=== PATIENT | female | born 1940 | race Caucasian/White ===

== ENCOUNTER 2016-10-31 02:35 | Inpatient (IN) | payer MEDICARE, MEDICAID ==
[~2016-10-31 02:35] MED LIST: ACETAMINOPHEN325 M1 PO; ADVIL200 MG; ARICEPT10 M2 PO; AUGMENTIN500 MG PO; BACLOFEN10 M1 PO; BISCOLAX10 MG PR; BP MED; BROVANA15 MCG/22 INH; COLACE100 M1 PO; COMPAZINE5 M2 PO; COREG6.25 M1 PO; COUMADIN5 M2 PO; COUMADIN5 MG PO; COUMADIN7.5 MG PO; DARVOCET; DARVOCET-N 1001 EA PO; DARVOCET-N 1001 TAB; DUONEB INH; EFFEXOR XR75 M1 PO; EFFEXOR75 MG PO; FEROSUL325 M1 PO; FLEXERIL10 MG PO; GUAIFENESIN DM PO; HYZAAR 50-12.51 TA1 PO; HYZAAR 50-12.51 TAB; LASIX20 M1 PO; LOVENOX40 MG/0.1 SC; MICRO-K10 MEQ PO; MILK OF MAGNESIA PO; MIRALAX17 G2 PO; MIRALAX17 GM PO; MUCINEX600 M1 PO; NAPROSYN500 MG PO; NEURONTIN100 M1 PO; NORCO 7.5/325 T1 TAB PO; NUVIGIL50 MG PO; OMEPRAZOLE20 M3 PO; OXYCODONE HCL5 M1 PO; PERIDEX480 ML MM; POTASSIUM CHLO20 ME3 PO; PRILOSEC20 MG PO; PROCHLORPERAZINE5 M1 PO; PULMICORT0.5 MG/22 INH; ROXICODONE5 M2 PO; SIMETHICONE80 M3 PO; TESSALON100 MG/CAP PO; TYLENOL ARTHRI650 M1 PO; VIGAMOX3 M1 OP; VITAMIN D31000 UNI3 PO; VITAMIN D32000 UNIT PO; WELLBUTRIN SR200 M2 PO; ZANTAC150 MG PO; ZESTORETIC 20-1 EAC4 PO; ZESTORETIC 20/21 TAB; ZESTORETIC 20/21 TAB PO
[2016-10-31 03:39] LABS: BASO % 0.1 % (0-2); EOS % 0.8 % (0-7); EOSINOPHIL ABSOLUTE COUNT 0.1 tho/cmm (0.0-0.7); HCT-HEMATOCRIT 41.7 % (34.0-49.0); HGB-HEMOGLOBIN 13.7 gm/dl (12.0-15.5); LYMPH % 18.1 % (20-45); LYMPH ABSOLUTE COUNT 1.3 tho/cmm (0.8-4.5); MCH (MEAN CORPUSCULAR HGB) 30.3 pg (28.0-32.0); MCHC MEAN CORPUSCULAR HGB CONC 32.9 % (32.0-36.0); MCV (MEAN CELL VOLUME) 92.3 fl (82.0-96.0); MEAN PLATELET VOLUME 10.1 cmc (9.4-12.4); MONO % 7.4 % (0-12); MONOCYTE ABSOLUTE COUNT 0.5 tho/cmm (0.0-1.2); NEUTROPHIL ABSOLUTE COUNT 5.3 tho/cmm (1.6-8.0); NEUTROPHIL-AUTOMATED 5.3 tho/cmm (1.6-8.0); NEUTROPHILS % 73.6 % (40-80); PLATELET COUNT 137 tho/cmm (150-450); RED BLOOD COUNT 4.52 mil/cmm (4.00-5.20); RED CELL DISTRIBUTION WIDTH 14.2 % (12.4-16.4); WHITE BLOOD COUNT 7.2 tho/cmm (4.0-10.0)
[2016-10-31 03:45] LABS: ABG CO2 ARTERIAL 26 mmol/L (21-27); ARTERIAL BLD GAS O2 SATURATION 92 % (95-98); ARTERIAL BLOOD GAS PCO2 43 mmHg (32-45); ARTERIAL PO2 65 mmHg (70-100); BICARBONATE 25 mmol/L (21-28); BLOOD GAS BASE EXCESS 0 mM/L (-/+3); PH 7.38 Units (7.35-7.45)
[2016-10-31 03:46] LABS: INR 1.8 INR (0.9-1.1)
[2016-10-31 03:58] LABS: ALB/GLOB RATIO 0.8 (0.8-2.0); ALBUMIN 3.3 g/dl (3.5-5.0); ALKALINE PHOSPHATASE 87 U/L (33-138); ALT/SGPT 20 U/L (12-78); ANION GAP 11 mmol/L (0-20); AST/SGOT 13 U/L (10-40); BILIRUBIN,TOTAL 0.7 mg/dl (0-1.5); BLOOD UREA NITROGEN 16 mg/dl (6-24); CALCIUM 8.4 mg/dl (8.5-10.5); CARBON DIOXIDE-VENOUS 28 mmol/L (22-32); CHLORIDE 105 mmol/l (96-110); CREATININE 0.97 mg/dl (0.50-1.10); GLUCOSE 143 mg/dL (70-110); POTASSIUM 3.7 mmol/L (3.7-5.1); SODIUM 140 mmol/L (135-145); eGFR VALUE FOR BLACK 65 mL/Min
[2016-10-31 04:12] LABS: PROCALCITONIN <0.05 ng/ml (0.05-0.09)
[2016-10-31 04:28] LABS: URINE BILIRUBIN NEGATIVE (NEG); URINE BLOOD NEGATIVE (NEG); URINE GLUCOSE (UA) NEGATIVE (NEG); URINE KETONE NEGATIVE (NEG); URINE LEUKOCYTE ESTERASE NEGATIVE (NEG); URINE NITRITE NEGATIVE (NEG); URINE PROTEIN MODERATE (NEG); URINE SPECIFIC GRAVITY 1.025 (1.003-1.030)
[2016-10-31 04:29] LABS: URINE APPEARANCE CLEAR; URINE COLOR YELLOW
[2016-10-31 04:33] LABS: URINE AMORPHOUS 3+; URINE BACTERIA 1+; URINE EPITHELIAL CELLS RARE /[HPF] (0-10); URINE RBC 0 /[HPF] (0-5); URINE WBC RARE /[HPF] (0-5)
[2016-10-31 08:03] LABS: ARTERIAL BLD GAS O2 SATURATION 97 % (95-98); ARTERIAL BLOOD GAS PCO2 42 mmHg (32-45); BICARBONATE 24 mmol/L (21-28); BLOOD GAS BASE EXCESS -1 mM/L (-/+3); PH 7.38 Units (7.35-7.45)
[2016-10-31 08:04] LABS: ABG CO2 ARTERIAL 21 mmol/L (21-27); ARTERIAL PO2 97 mmHg (70-100)
--- NOTE | 2016-10-31 13:48 | NUR ---
0900 MEDS GIVEN LATE DUE TO PATIENT BEING LETHARGIC AND NOT AWAKE ENOUGH TO DO A SWALLOW STUDY
[2016-11-01 05:27] LABS: INR 2.5 INR (0.9-1.1)
[2016-11-01 05:29] LABS: HCT-HEMATOCRIT 38.2 % (34.0-49.0); HGB-HEMOGLOBIN 12.4 gm/dl (12.0-15.5); IMMATURE GRANULOCYTES ABSOLUTE 0.02 tho/cmm (0-0.03); IMMATURE GRANULOCYTES PERCENT 0.3 % (0-0.3); LYMPH % 11.6 % (20-45); LYMPH ABSOLUTE COUNT 0.9 tho/cmm (0.8-4.5); MCHC MEAN CORPUSCULAR HGB CONC 32.5 % (32.0-36.0); MCV (MEAN CELL VOLUME) 92.3 fl (82.0-96.0); MEAN PLATELET VOLUME 10.9 cmc (9.4-12.4); MONO % 8.4 % (0-12); MONOCYTE ABSOLUTE COUNT 0.6 tho/cmm (0.0-1.2); NEUTROPHILS % 79.7 % (40-80); PLATELET COUNT 136 tho/cmm (150-450); RED BLOOD COUNT 4.14 mil/cmm (4.00-5.20); RED CELL DISTRIBUTION WIDTH 14.2 % (12.4-16.4); WHITE BLOOD COUNT 7.6 tho/cmm (4.0-10.0)
[2016-11-01 05:35] LABS: ANION GAP 11 mmol/L (0-20); BLOOD UREA NITROGEN 22 mg/dl (6-24); CALCIUM 8.7 mg/dl (8.5-10.5); CARBON DIOXIDE-VENOUS 28 mmol/L (22-32); CHLORIDE 106 mmol/l (96-110); CREATININE 0.84 mg/dl (0.50-1.10); GLUCOSE 130 mg/dL (70-110); SODIUM 141 mmol/L (135-145); eGFR VALUE FOR BLACK 77 mL/Min
[2016-11-01 05:38] LABS: PROTHROMBIN TIME 30.4 SECONDS (9.0-13.6)
[2016-11-02 06:07] LABS: PLATELET COUNT 152 tho/cmm (150-450)
[2016-11-02 06:28] LABS: BLOOD UREA NITROGEN 29 mg/dl (6-24); CALCIUM 8.4 mg/dl (8.5-10.5); CARBON DIOXIDE-VENOUS 30 mmol/L (22-32); CHLORIDE 103 mmol/l (96-110); CREATININE 1.14 mg/dl (0.50-1.10); GLUCOSE 108 mg/dL (70-110); SODIUM 140 mmol/L (135-145); eGFR VALUE FOR BLACK 53 mL/Min
[2016-11-02 06:36] LABS: ANION GAP 10 mmol/L (0-20); POTASSIUM 3.4 mmol/L (3.7-5.1)
[2016-11-03 05:14] LABS: BASO % 0.1 % (0-2); EOS % 1.1 % (0-7); EOSINOPHIL ABSOLUTE COUNT 0.1 tho/cmm (0.0-0.7); HCT-HEMATOCRIT 41.5 % (34.0-49.0); HGB-HEMOGLOBIN 13.2 gm/dl (12.0-15.5); IMMATURE GRANULOCYTES ABSOLUTE 0.01 tho/cmm (0-0.03); IMMATURE GRANULOCYTES PERCENT 0.1 % (0-0.3); LYMPH % 31.1 % (20-45); LYMPH ABSOLUTE COUNT 2.9 tho/cmm (0.8-4.5); MCH (MEAN CORPUSCULAR HGB) 29.9 pg (28.0-32.0); MCHC MEAN CORPUSCULAR HGB CONC 31.8 % (32.0-36.0); MCV (MEAN CELL VOLUME) 93.9 fl (82.0-96.0); MEAN PLATELET VOLUME 10.9 cmc (9.4-12.4); MONO % 12.6 % (0-12); MONOCYTE ABSOLUTE COUNT 1.2 tho/cmm (0.0-1.2); NEUTROPHIL ABSOLUTE COUNT 5.1 tho/cmm (1.6-8.0); NEUTROPHIL-AUTOMATED 5.1 tho/cmm (1.6-8.0); PLATELET COUNT 170 tho/cmm (150-450); RED BLOOD COUNT 4.42 mil/cmm (4.00-5.20); RED CELL DISTRIBUTION WIDTH 14.2 % (12.4-16.4); WHITE BLOOD COUNT 9.3 tho/cmm (4.0-10.0)
[2016-11-03 05:24] LABS: ANION GAP 9 mmol/L (0-20); BLOOD UREA NITROGEN 29 mg/dl (6-24); CALCIUM 8.4 mg/dl (8.5-10.5); CARBON DIOXIDE-VENOUS 35 mmol/L (22-32); CHLORIDE 101 mmol/l (96-110); CREATININE 1.21 mg/dl (0.50-1.10); GLUCOSE 137 mg/dL (70-110); POTASSIUM 3.2 mmol/L (3.7-5.1); SODIUM 142 mmol/L (135-145); eGFR VALUE FOR BLACK 50 mL/Min
[2016-11-03 13:45] LABS: INR 3.9 INR (0.9-1.1); PROTHROMBIN TIME 47.7 SECONDS (9.0-13.6)
[2016-11-04 04:45] LABS: ANION GAP 11 mmol/L (0-20); BLOOD UREA NITROGEN 33 mg/dl (6-24); CALCIUM 8.6 mg/dl (8.5-10.5); CARBON DIOXIDE-VENOUS 34 mmol/L (22-32); CHLORIDE 103 mmol/l (96-110); CREATININE 0.99 mg/dl (0.50-1.10); GLUCOSE 99 mg/dL (70-110); POTASSIUM 3.5 mmol/L (3.7-5.1); SODIUM 144 mmol/L (135-145); eGFR VALUE FOR BLACK 63 mL/Min
[2016-11-04 04:49] LABS: INR 3.2 INR (0.9-1.1)
[2016-11-04 05:17] LABS: PROTHROMBIN TIME 38.9 SECONDS (9.0-13.6)
[2016-11-05 07:02] LABS: ANION GAP 7 mmol/L (0-20); BLOOD UREA NITROGEN 28 mg/dl (6-24); CALCIUM 8.7 mg/dl (8.5-10.5); CARBON DIOXIDE-VENOUS 35 mmol/L (22-32); CHLORIDE 103 mmol/l (96-110); CREATININE 0.97 mg/dl (0.50-1.10); GLUCOSE 88 mg/dL (70-110); POTASSIUM 3.4 mmol/L (3.7-5.1); SODIUM 142 mmol/L (135-145); eGFR VALUE FOR BLACK 65 mL/Min
[2016-11-05 07:28] LABS: INR 1.8 INR (0.9-1.1)
[2016-11-05] MEDS ORDERED: COUMADIN3 M1 PO (12:26)
[2016-11-05] MEDS ORDERED: ZESTRIL20 M3 PO (12:28)
[2016-11-05] MEDS ORDERED: COREG6.25 M1 PO (12:30)
[2016-11-05] MEDS ORDERED: ALDACTONE25 M1 PO (12:33)
[2016-11-05] MEDS ORDERED: DELTASONE20 MG PO (12:36)
== END 2016-11-05 13:28 | DRG 190 ==
LOC: EDMED 02:35 → EMR2 04:57 → PCUA 06:57
PROVIDERS: Emergency Medicine; Family Medicine; Internal Medicine; Internal Medicine Cardiovascular Disease; ADMIT Internal Medicine
PROC: 05HC33Z Insertion of Infusion Device into Left Basilic Vein, Percutaneous Approach (ICD-10-PCS; principal; 2016-10-31)
DX: J44.1 Chronic obstructive pulmonary disease with (acute) exacerbation (principal); G92 Toxic encephalopathy; J96.01 Acute respiratory failure with hypoxia; G93.1 Anoxic brain damage, not elsewhere classified; I42.9 Cardiomyopathy, unspecified; D69.6 Thrombocytopenia, unspecified; I50.9 Heart failure, unspecified; I11.0 Hypertensive heart disease with heart failure; I48.2 Chronic atrial fibrillation; F03.90 Unspecified dementia, unspecified severity, without behavioral disturbance, psychotic disturbance, mood disturbance, and anxiety; I25.10 Atherosclerotic heart disease of native coronary artery without angina pectoris; M19.90 Unspecified osteoarthritis, unspecified site; F32.9 Major depressive disorder, single episode, unspecified; E87.6 Hypokalemia; Z72.0 Tobacco use; Z86.718 Personal history of other venous thrombosis and embolism
CPT/HCPCS: A9500; C1751; J0456; J1940; J2785; J2920; J2930; J7030; J7050; J7512; P9612